=== PATIENT | male | born 1965 | race Caucasian/White ===

== ENCOUNTER 2020-05-02 10:59 | Emergency (ER) | payer OTHER, SELFPAY ==
--- NOTE | ~2020-05-02 | XR_ITS ---
XR chest 2V DATE: 05/02/2020 11:29 INDICATION: Cough TECHNIQUE: Frontal and lateral views COMPARISON: None FINDINGS: Normal heart size. No hilar or mediastinal enlargement. No pulmonary infiltrate or consolid ation, pleural effusion or pulmonary vascular congestion or pneumothorax. IMPRESSION: No active cardiopulmonary disease Reviewed, dictated and finalized at location A. [facility]
[2020-05-02 11:17] VITALS: BP 137/78; PULSE 75; RESP 16; TEMP 36.7; O2SAT 100
--- NOTE | 2020-05-02 11:32 | ED.URI ---
HPI - URI/Sore Throat General Chief Complaint: Upper Respiratory Infection Stated Complaint: sinus problems Source: patient Mode of arrival: ambulatory Limitations: no limitations History of Present Illness HPI Narrative: Patient is a 55-year-old male who presents complaining of cough and rhinorrhea. Patient reports working outside frequently and believes he caught a head cold . He denies fever, he denies chest pain or shortness of breath, he denies sore throat body aches or myalgias. He reports taking [id number] medications with limited relief. He denies all other complaints. He denies significant medical history, but reports that he does smoke marijuana and cigarettes daily. MD elicited complaint: cough and rhinorrhea Related Data Home Medications Medication Instructions Recorded Confirmed No Home Medications 05/02/20 05/02/20 Allergies Allergy/AdvReac Type Severity Reaction Status Date / Time Penicillins Allergy Intermediate Hives Verified 05/02/20 11:23 Review of Systems Review of Systems: Narrative: CONSTITUTIONAL: Denies fever, chills, or sweats. EYES: Denies visual changes, redness, or discharge. ENT: Denies rhinorrhea, congestion, sore throat, or otalgia. CARDIOVASCULAR: Denies chest pain, palpitations, or edema. RESPIRATORY: Denies cough or dyspnea. GASTROINTESTINAL: Denies abdominal pain, nausea, vomiting, or diarrhea. GENITOURINARY: Denies dysuria or hematuria. SKIN: Denies rash or itching. MUSCULOSKELETAL: Denies back pain, joint pain, or myalgia. NEUROLOGIC: Denies headache, numbness, dizziness, or weakness. PSYCHIATRIC: Denies anxiety or depression. [facility] Past Medical History Medical History GERD (gastroesophageal reflux disease) Surgical History Surgical History History of appendectomy Hx of tonsillectomy Family History Family History Mother Hypertension Social History Social History (Updated 05/02/20 @ 11:37 by JULIO Cutler) Smoking status: Current every day smoker Alcohol intake: current Substance use: current Substance use type: marijuana Gender identity (if verbalized by the patient): Male Exam Narrative: Exam Narrative: GENERAL: Well-appearing, well-nourished, and in no acute distress. HEAD: Normocephalic, atraumatic. EYES: No redness or drainage. ENT: Mucous membranes pink and moist. Nares clear. No rhinorrhea. Throat normal. Uvula midline. NECK: AROM. Supple. No lymphadenopathy. CHEST: No respiratory distress. Clear to auscultation. HEART: Regular rate and rhythm. SKIN: Warm, dry, no rash. NEURO: No focal deficits. Alert and oriented x3. Gait steady. PSYCH: Normal affect. No signs of depression or anxiety. Course Vital Signs Vital signs: Vital Signs Temperature 36.7 C 05/02/20 11:17 Pulse Rate 75 05/02/20 11:17 Respiratory Rate 16 05/02/20 11:17 Blood Pressure 137/78 05/02/20 11:17 Pulse Oximetry 100 05/02/20 11:17 Temperature 36.7 C 05/02/20 11:17 Pulse Rate 75 05/02/20 11:17 Respiratory Rate 16 05/02/20 11:17 Blood Pressure 137/78 05/02/20 11:17 Pulse Oximetry 100 05/02/20 11:17 Reviewed. Patient has been instructed to follow-up with his PCP regarding his blood pressure. MDM - URI/Sore Throat MDM Narrative Medical decision making narrative: Patient's chest x-ray is negative. Discussed with patient Covid testing. Patient refuses Covid testing at this time, he reports he has no risks his job. Discussed taking [id number] medications for symptom relief. Patient aware that if he develops chest pain or shortness of breath, he needs to go to the emergency department immediately for further evaluation. Differential Diagnosis Differential diagnosis: Likely upper respiratory infection, sinusitis, viral infection, bronchitis and
== END 2020-05-02 11:53 | disposition home or self-care (01) ==
PROVIDERS: Emergency Provider Nurse Practitioner; PCP Family Medicine
DX: J06.9 Acute upper respiratory infection, unspecified (principal); F17.200 Nicotine dependence, unspecified, uncomplicated; K21.9 Gastro-esophageal reflux disease without esophagitis
CPT/HCPCS: 71046; 99213; G0463

== ENCOUNTER 2020-09-05 07:07 | Outpatient (CLI) | payer OTHER, SELFPAY ==
[2020-09-05 07:33] LABS: Cholesterol 166 mg/dL (0-200); HDL Direct 37 mg/dL; Triglycerides 140 mg/dL (<150)
[2020-09-05 07:44] LABS: LDL Cholesterol Direct 90 mg/dL
== END 2020-09-05 07:08 | disposition home or self-care (01) ==
PROVIDERS: PCP Family Medicine; Visit Provider Nurse Practitioner Family
DX: E78.2 Mixed hyperlipidemia (principal)
CPT/HCPCS: 36415; 80061

== ENCOUNTER 2021-06-03 10:10 | Emergency (ER) | payer OTHER, SELFPAY ==
[2021-06-03 11:00] VITALS: BP 131/83; PULSE 64; RESP 16; TEMP 36.9; O2SAT 98
--- NOTE | 2021-06-03 12:22 | ED.URI ---
HPI - URI/Sore Throat General Chief Complaint: Upper Respiratory Infection Stated Complaint: runny nose Time Seen by Provider: 06/03/21 12:22 Source: patient and RN notes reviewed Mode of arrival: ambulatory Limitations: no limitations History of Present Illness HPI Narrative: 56-year-old male presents the concern with 10-day history of nasal congestion, rhinorrhea, sinus pressure and postnasal drainage. Reports taking multiple lxbu-kec-laecrwz medications without consistent relief including Sudafed, Afrin, Zyrtec, TheraFlu. He denies fever, body aches, chills, sweats, cough, shortness of breath. MD elicited complaint: nasal congestion Related Data Home Medications Medication Instructions Recorded Confirmed esomeprazole magnesium [Nexium] 20 mg PO DAILY 06/03/21 06/03/21 Allergies Allergy/AdvReac Type Severity Reaction Status Date / Time Penicillins Allergy Intermediate Hives Verified 06/03/21 12:12 Review of Systems Review of Systems: CONSTITUTIONAL: Denies malaise, chills, sweats, or fever. EYES: Denies visual changes, redness, or discharge. ENT: Reports rhinorrhea, congestion, sinus pain. Denies otalgia and sore throat. CARDIOVASCULAR: Denies chest pain, palpitations, or edema. RESPIRATORY: Denies cough. Denies dyspnea. GASTROINTESTINAL: Denies abdominal pain, nausea, vomiting, diarrhea SKIN: Denies rash or itching. MUSCULOSKELETAL: Denies myalgia. NEUROLOGIC: Denies headache. All systems reviewed & are unremarkable except as noted in HPI and below PMFSH Past Medical History Medical History BMI 29.0-29.9,adult BMI 31.0-31.9,adult GERD (gastroesophageal reflux disease) Mixed hyperlipidemia Screen for colon cancer Screening for lipid disorders Screening for prostate cancer Tobacco abuse Surgical History Surgical History History of appendectomy Hx of tonsillectomy Family History Family History Mother Hypertension History of open heart surgery Diabetes mellitus COPD (chronic obstructive pulmonary disease) Tobacco abuse Father No problems noted. Sibling No problems noted. Social History Social History Smoking packs per day: 0.5 Smoking cigarettes per day: 10.0 Years smoked: 40 Smoking pack-years: 20.00 Smoking status: Current every day smoker Tobacco type: cigarettes Alcohol intake: former Substance use: current Substance use type: marijuana Additional occupation/education comments: [employer] Gender identity (if verbalized by the patient): Male Comments At time of signature, agree with nursing past medical, surgical, social and family history. There is no relevant family history pertinent to the presenting complaint Exam Narrative: GENERAL: Well-appearing, well-nourished, and in no acute distress. HEAD: Normocephalic EYES: PERRLA, conjunctivae clear ENT: Nares clear, turbinates edematous and erythematous, sinus tenderness discharge. Mucous membranes moist. TM pearly palmer with dull light reflex bilaterally; no tragal tenderness. Oropharynx not erythematous without lesions. Tonsils not enlarged and without exudate, no drooling, no hoarseness, no trismus, uvula midline. NECK: Supple. No lymphadenopathy CHEST: Clear to auscultation, breath sounds equal. No wheezing, rhonchi, rales, or stridor. No respiratory distress, speaks in full sentences. HEART: Regular rate and rhythm. No murmur heard. SKIN: Warm, dry, no rash. NEURO: Alert and oriented x3. PSYCH: Normal mood and affect Course Course Emergency Course: Patient is aware of diagnosis, understands and agrees to treatment plan. Anticipatory guidance given. Patient agrees to follow-up as directed and is aware of reasons to seek care at the emergency department. Portions of this recor
== END 2021-06-03 12:36 | disposition home or self-care (01) ==
PROVIDERS: Emergency Provider Nurse Practitioner; PCP Family Medicine
DX: J01.90 Acute sinusitis, unspecified (principal); F17.210 Nicotine dependence, cigarettes, uncomplicated; E78.2 Mixed hyperlipidemia; K21.9 Gastro-esophageal reflux disease without esophagitis
CPT/HCPCS: 99213; G0463

== ENCOUNTER → 2021-09-30 10:57 | Outpatient (REF) | payer OTHER, SELFPAY | LOC: ANHLAB 10:57 | PROVIDERS: PCP Family Medicine; Visit Provider Nurse Practitioner | DX: L30.9 Dermatitis, unspecified (principal) | CPT/HCPCS: 88305 ==

== ENCOUNTER → 2022-01-26 14:47 | Outpatient (CLI) | payer OTHER, SELFPAY ==
--- NOTE | ~2022-01-26 | XR_ITS ---
EXAM: XR lumbar spine 2-3V DATE: 01/26/2022 14:56 HISTORY: NO RECENT INJURY LOW BACK PAIN . COMPARISON: None available. FINDINGS: 5 nonrib-bearing lumbar-type vertebral bodies. Pedicles intact. Normal vertebral body 13 m m anterolisthesis of L5 on S1. Bilateral pars defects at L5 multilevel disc space narrowing, severe a t L4-5 and L5-S1. Presumed physiologic mild anterior wedge deformities at the thoracolumbar junction. Multilevel marginal osteophytosis, most pronounced at the thoracolumbar spine. Multilevel facet arth ropathy.. IMPRESSION: Grade 2 anterolisthesis of L5 on S1. Bilateral pars defects at L5. Severe degenerative di sc disease at L4-5 and L5-S1. Reviewed, dictated and finalized at location K. IMPRESSION: Grade 2 anterolisthesis of L5 on S1. Bilateral pars defects at L5. Severe degenerative disc disease at L4-5 and L5-S1.
== END ==
PROVIDERS: PCP Family Medicine; Visit Provider Physician Assistant Medical
DX: M47.817 Spondylosis without myelopathy or radiculopathy, lumbosacral region (principal); M48.07 Spinal stenosis, lumbosacral region
CPT/HCPCS: 72100

== ENCOUNTER → 2022-02-26 07:30 | Outpatient (CLI) | payer OTHER, SELFPAY ==
--- NOTE | ~2022-02-26 | MR_ITS ---
. EXAMINATION: MR lumbar spine wo con DATE: 02/26/2022 08:07 INDICATION: Sciatica. Left-sided low back pain, buttock pain, leg pain. TECHNIQUE: Magnetic resonance imaging (MRI) of the lumbar spine was performed without intravenous con trast. Sequences included sagittal T2-weighted FSE, sagittal T2-weighted FS FSE, sagittal T1-weighted FSE, and axial T2-weighted FSE. COMPARISON: Lumbar spine radiographs 01/26/2022 FINDINGS: There is 3 degrees levocurvature of lumbar spine. There are chronic bilateral L5 pars defec ts. There is 11 mm anterolisthesis of L5 on S1 and 3 mm retrolisthesis of L4 on L5. There is mild chr onic height loss of L5 vertebral body posteriorly. There is mild chronic anterior wedging of T11 and T12 vertebral bodies. There is mildly decreased disc height at T12-L1, L1-L2, and L3-L4, moderately d ecreased disc height at L4-L5, and severely decreased disc height at L5-S1 with endplate remodeling. The distal spinal cord signal intensity is normal. The conus medullaris is at T12-L1. The following d isc levels are specifically discussed: L1-L2: The disc is bulging. There is mild bilateral facet joint osteoarthritis. There is mild right n eural foraminal stenosis. There is mild central canal stenosis. L2-L3: The disc is bulging. There is mild bilateral facet joint osteoarthritis. There is mild bilater al neural foraminal stenosis. There is mild central canal stenosis. L3-L4: The disc is bulging with superimposed central extrusion. There is no facet joint osteoarthriti s. There is mild bilateral neural foraminal stenosis. There is mild central canal stenosis. L4-L5: The disc is bulging with superimposed left central extrusion. There is mild bilateral facet renuka int osteoarthritis. There is mild bilateral neural foraminal stenosis. There is mild central canal st enosis. L5-S1: The disc does not extend beyond the endplate margin. There is mild bilateral facet joint osteo arthritis. There is moderate bilateral neural foraminal stenosis. There is no central canal stenosis. IMPRESSION: 1. Chronic bilateral L5 pars defects with grade 2 anterolisthesis of L5 on S1. 2. Severe lower lumbar spondylosis. Reviewed, dictated and finalized at location A.
== END ==
PROVIDERS: PCP Family Medicine; Visit Provider Physician Assistant Medical
DX: M47.817 Spondylosis without myelopathy or radiculopathy, lumbosacral region (principal); M48.07 Spinal stenosis, lumbosacral region; M54.42 Lumbago with sciatica, left side
CPT/HCPCS: 72148

== ENCOUNTER 2024-01-03 11:47 | Emergency (ER) | payer OTHER, SELFPAY ==
[2024-01-03 11:59] VITALS: BP 121/78; PULSE 75; RESP 16; TEMP 37.8; O2SAT 99
[2024-01-03 13:05] LABS: EDINFLUASCREEN Negative; EDINFLUBSCREEN Negative
--- NOTE | 2024-01-03 13:10 | ED.GENADULT ---
HPI - General Adult General Chief complaint: Upper Respiratory Infection Stated complaint: PRESCOTT,runny nose, bodyaches Source: patient Mode of arrival: ambulatory Limitations: no limitations History of Present Illness HPI narrative: Patient presents for evaluation of sick symptoms since last night. Symptoms include chills, body aches, headache, chest congestion. He denies any nausea, vomiting, diarrhea or shortness of breath. No recent sick contacts to his knowledge. He smokes a half a pack per day. He has not taken any medication to assist with the symptoms. He would like to have a COVID test performed. he has never had COVID. He is up-to-date on all COVID vaccinations Related Data Home Medications Medication Instructions Recorded Confirmed aspirin 81 mg chewable tablet 81 mg DIRECTED 01/03/24 01/03/24 cyanocobalamin (vitamin B-12) 1,000 mcg PO DIRECTED 01/03/24 01/03/24 1,000 mcg capsule metformin 500 mg tablet,extended 500 mg PO DIRECTED 01/03/24 01/03/24 release 24 hr omeprazole 20 mg tablet,delayed 20 mg PO DAILY 01/03/24 01/03/24 release rosuvastatin 20 mg tablet 20 mg DIRECTED 01/03/24 01/03/24 Allergies Allergy/AdvReac Type Severity Reaction Status Date / Time Penicillins Allergy Intermediate Hives Verified 01/26/22 14:21 ketorolac AdvReac Intermediate Nausea and Verified 01/26/22 14:21 Vomiting Review of Systems Review of Systems: CONSTITUTIONAL: Reports chills. Denies fever EYES: Denies visual changes, redness, or discharge. ENT: Reports sinus congestion. Denies sore throat or otalgia. CARDIOVASCULAR: Denies chest pain, palpitations, or edema. RESPIRATORY: Reports chest congestion and cough. Denies shortness of breath GASTROINTESTINAL: Denies abdominal pain, nausea, vomiting, or diarrhea. GENITOURINARY: Denies dysuria or hematuria. SKIN: Denies rash or itching. MUSCULOSKELETAL: Reports generalized body aches. NEUROLOGIC: Reports headache. Denies, numbness, dizziness, or weakness. PSYCHIATRIC: Denies anxiety or depression. [facility] Past Medical History Medical History BMI 29.0-29.9,adult BMI 31.0-31.9,adult Degeneration of lumbar or lumbosacral intervertebral disc Diarrhea GERD (gastroesophageal reflux disease) Mixed hyperlipidemia Screen for colon cancer Screening for lipid disorders Screening for prostate cancer Skin lesion of right leg Tobacco abuse Surgical History Surgical History History of appendectomy Hx of tonsillectomy Family History Family History Mother Hypertension History of open heart surgery Diabetes mellitus COPD (chronic obstructive pulmonary disease) Tobacco abuse Father No problems noted. Sibling No problems noted. 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 HEAD: Normocephalic, atraumatic. EYES: PERRLA and EOMI. ENT: Nares clear, no rhinorrhea or epistaxis. Mucous membranes moist. Oropharynx without tonsillar hypertrophy exudate or other lesions. Bilateral TMs pearly palmer nonbulging NECK: Supple. No adenopathy or masses. No carotid bruits or JVD CHEST: Clear to ausculta
== END 2024-01-03 13:13 | disposition home or self-care (01) ==
PROVIDERS: Emergency Provider Nurse Practitioner
DX: U07.1 COVID-19 (principal); F17.210 Nicotine dependence, cigarettes, uncomplicated; F12.90 Cannabis use, unspecified, uncomplicated; K21.9 Gastro-esophageal reflux disease without esophagitis; E78.5 Hyperlipidemia, unspecified; M51.36 Other intervertebral disc degeneration, lumbar region; M51.37 Other intervertebral disc degeneration, lumbosacral region; Z79.82 Long term (current) use of aspirin
CPT/HCPCS: 87426; 87804; 99213; G0463